=== PATIENT | female | born 1940 | race Caucasian/White ===

== ENCOUNTER → 2020-08-14 | Outpatient (CLI) | payer MEDICARE ==
[2020-08-14 13:00] LABS: African American GFR (CKD) >90 (>60 ml/min/1.73 sqM); Blood Urea Nitrogen 14 mg/dL (7-17); Non-African American GFR(CKD) 81 (>60 ml/min/1.73 sqM)
--- NOTE | 2020-08-14 14:50 | CT ---
EXAMINATION TYPE: CT abdomen pelvis w con DATE OF EXAM: 08/14/2020 HISTORY: midline abdominal pain CT DLP: 597.7mGycm Automated Exposure Control for Dose Reduction was Utilized. CONTRAST: CT scan of the abdomen and pelvis is performed with IV Contrast, patient injected with 100 mL of Isov ue 300. COMPARISON: None. FINDINGS: LUNG BASES: No significant abnormality is appreciated. LIVER/GB: Cholecystectomy clips. PANCREAS: No significant abnormality is seen. SPLEEN: No significant abnormality is seen. ADRENALS: No significant abnormality is seen. KIDNEYS: Partially exophytic 4.8 cm thin-walled cyst medially upper pole level right kidney. Symmetri c cortical medullary uptake and excretion without concerning renal mass or hydronephrosis seen bilate rally. BOWEL: Oral contrast reaches level of the right colon. No suspicious small or large bowel dilatation. Mild to moderate colonic fecal prominence in the transverse and left colon extends into proximal sig moid colon. UTERUS/ADNEXA: Uterus is surgically absent. Scattered bilateral pelvic phleboliths. In the right adne xa there is well-defined 5.2 x 5.1 x 5.2 cm lesion of predominantly fat density that has posterior sm aller 2.2 cm slightly more hyperdense soft tissue nodule. 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 LYMPH NODES: No greater than 1cm abdominal or pelvic lymph nodes are appreciated. OSSEOUS STRUCTURES: Ylpk-wk-smnlbkfy disc space narrowing with vacuum disc phenomenon L4-L5 level. Mu ltilevel facet arthropathy in the mid to lower lumbar spine. OTHER: Moderate mixed plaque in the abdominal aorta. More mild plaque in the iliac branch vessels. IMPRESSION: 1. Mild to moderate colonic fecal stasis. No bowel obstruction. 2. There is 5.2 cm right adnexal or ovarian teratoma.
== END | disposition home or self-care (01) ==
LOC: RADCTMAIN 11:58
PROVIDERS: ATTEND Family Medicine
DX: D39.11 Neoplasm of uncertain behavior of right ovary (principal); K59.89 Other specified functional intestinal disorders
CPT/HCPCS: 82565; 84520; 74177; 36415; Q9967

== ENCOUNTER → 2021-11-26 | Outpatient (CLI) | payer MEDICARE, OTHER ==
--- NOTE | 2021-11-26 10:32 | CT ---
EXAMINATION TYPE: CT abdomen pelvis w con DATE OF EXAM: 11/26/2021 COMPARISON: 08/14/2020 INDICATION: low pelvic pain DLP: 905.9 mGycm, Automated exposure control for dose reduction was used. CONTRAST: 70 mL of Isovue 300. Study performed with Oral Contrast TECHNIQUE: Axial images were obtained from above the diaphragm to the pubic rami in the axial plane a t 5 mm thick sections. Reconstructed images are reviewed on the computer in the coronal plane. FINDINGS: Limited CT sections are obtained the lung bases. The lung bases are clear. CT ABDOMEN: Liver: Normal Spleen: Normal Pancreas: Normal Adrenal glands: The adrenal glands are normal. Gallbladder: Surgically absent Kidneys: No masses are evident. No hydronephrosis is present. There is a 4.4 cm cyst superior media l right kidney measuring 10 Hounsfield units. A 1.6 cm cyst on the medial mid left kidney. Tiny génesis ical renal cyst is on the left. Delayed images are unremarkable Aorta: Vascular calcification is within the aorta. Inferior vena cava: Normal. CT PELVIS: Loops of bowel within the abdomen and pelvis are normal. There are loops of bowel which are incom pletely distended or lack oral contrast limiting their evaluation. There is a rounded density within a dilated loop of colon is likely some fecal debris. Underlying polyp is not excluded. Series 3 image 65. Appendix: Not identified. No dilated tubular structure or inflammatory changes evident. Urinary bladder: Normal. Genitourinary structures: Uterus and ovaries are not identified. Osseous structures: No suspicious lytic or sclerotic lesions. IMPRESSIONS: 1. 1. Renal cysts. 2. Fecal debris versus polyp within the both distal colon discussed above
== END | disposition home or self-care (01) ==
LOC: RADCTMAIN 06:29
PROVIDERS: ATTEND Internal Medicine Geriatric Medicine
DX: C56.9 Malignant neoplasm of unspecified ovary (principal); N28.1 Cyst of kidney, acquired
CPT/HCPCS: 74177; Q9967

== ENCOUNTER → 2023-03-16 | Outpatient (CLI) | payer MEDICARE, OTHER ==
[2023-03-16 16:27] LABS: ALT 47 U/L (8-44); AST 45 U/L (13-35); Albumin 3.9 g/dL (3.8-4.9); Albumin/Globulin Ratio 2.05 Ratio (1.60-3.17); Alkaline Phosphatase 69 U/L (41-126); BUN/Creat Ratio 16.62 Ratio (12.00-20.00); Blood Urea Nitrogen 13.3 mg/dL (9.0-27.0); Calcium 9.6 mg/dL (8.7-10.3); Carbon Dioxide 23.7 mmol/L (21.6-31.8); Chloride 102 mmol/L (96-109); Chol/HDL Ratio 1.69 Ratio; Globulin 1.9 g/dL (1.6-3.3); Glucose 154 mg/dL (70-110); LDL Cholesterol,Calculated 18.5 mg/dL (0.0-131.0); Sodium 137 mmol/L (135-145); Total Bilirubin 0.6 mg/dL (0.3-1.2); Total Protein 5.8 g/dL (6.2-8.2); VLDL Calculation 12.56 mg/dL (5.00-40.00)
[2023-03-16 18:00] LABS: Urine Creatinine 84.3 mg/dL (28.0-217.0)
== END | disposition home or self-care (01) ==
LOC: LABWHC1 08:28
PROVIDERS: ATTEND Internal Medicine Endocrinology, Diabetes & Metabolism
DX: E11.65 Type 2 diabetes mellitus with hyperglycemia (principal)
CPT/HCPCS: 36415; 80053; 80061; 82043; 82570; 83036; 84443

== ENCOUNTER 2024-03-25 12:01 | Observation (INO) | payer MEDICARE, OTHER ==
[2024-03-25] MEDS: SODIUM CHLORIDE 0.9% 500 ML 500 ML IV STA (12:28)
[2024-03-25] MEDS: NITROGLYCERIN OINT 1 INCH/GM PACKET TOPICAL STA (12:28)
[2024-03-25 12:41] LABS: Anisocytosis Slight; Basophils % (A) 0 %; Eosinophils % (A) 1 %; HCT 30.6 % (34.0-46.0); HGB 9.4 gm/dL (11.4-16.0); Hypochromasia Moderate; Lymphocytes % (A) 15 %; MCH 24.9 pg (25.0-35.0); MCHC 30.5 g/dL (31.0-37.0); MCV 81.6 fL (80.0-100.0); Mean Platelet Volume 6.9; Monocytes # (A) 0.2 k/uL (0-1.0); Monocytes % (A) 4 %; Neutrophils % (A) 79 %; Platelet Count 245 k/uL (150-450); RBC 3.75 m/uL (3.80-5.40); RDW 16.2 % (11.5-15.5); WBC 6.4 k/uL (3.8-10.6)
--- NOTE | 2024-03-25 12:46 | XR ---
EXAMINATION TYPE: XR chest 2V DATE OF EXAM: 03/25/2024 CLINICAL HISTORY: Chest pain TECHNIQUE: Frontal and lateral views of the chest are obtained. COMPARISON: Chest x-ray January 26, 2023 FINDINGS: There is [id number]-bt-[id number] size right greater than left pleural effusions. There are biba silar opacities. There is new central vascular congestion. Mild cardiomegaly seen on current study. D egenerative changes bilateral glenohumeral joints is redemonstrated. IMPRESSION: Correlate for CHF exacerbation/fluid overload state as there is cardiomegaly with small t o moderate-sized right greater than left pleural effusions and mild/moderate central vascular congest ion on current study. There is associated right greater than left bibasilar opacities could reflect a cute infiltrate and/or atelectasis. [facility], , 03/25/2024 12:43 PM
[2024-03-25 12:50] LABS: ALT 22 U/L (4-34); AST 31 U/L (14-36); African American GFR (CKD) >90 (>60 ml/min/1.73 sqM); Albumin 3.7 g/dL (3.5-5.0); Alkaline Phosphatase 99 U/L (38-126); Anion Gap 9 mmol/L; Blood Urea Nitrogen 16 mg/dL (7-17); Calcium 9.2 mg/dL (8.4-10.2); Carbon Dioxide 21 mmol/L (22-30); Chloride 101 mmol/L (98-107); Glucose 232 mg/dL (74-99); Non-African American GFR(CKD) 82 (>60 ml/min/1.73 sqM); Sodium 131 mmol/L (137-145); Total Bilirubin 0.8 mg/dL (0.2-1.3); Total Protein 6.4 g/dL (6.3-8.2)
[2024-03-25 12:57] LABS: INR 1.1 (<1.2); Partial Thromboplastin Time 22.8 sec (22.0-30.0); Prothrombin Time 11.6 sec (10.0-12.5)
[2024-03-25 13:02] LABS: NT-Pro-B-Type Natriuretic Pept 8800 pg/mL
--- NOTE | 2024-03-25 13:12 | ED ---
Chest Pain HPI - General Chief Complaint: Chest Pain Stated Complaint: Chest Pain Time Seen by Provider: 03/25/24 12:04 Source: patient, EMS, RN notes reviewed Mode of arrival: EMS Limitations: no limitations - History of Present Illness Initial Comments: 83-year-old female presents emerged part via EMS with chief complaint of chest pain. Patient states that she had centralized chest pain and palpitations. She was given aspirin nitro by EMS which improved her symptoms. She states her pain is nearly resolved. Patient states that she had a recent [place] in January in which she states she believes she had cardiac stents placed she was also told that she more likely needs pacemaker but declined at that time. Patient denies any shortness of breath currently she denies any headache or dizziness no syncopal episodes. - Related Data Home Medications Medication Instructions Recorded Confirmed metFORMIN HCL [Glucophage] 1,000 mg PO BID 01/25/23 03/25/24 Ascorbic Acid [Vitamin C] 1,000 mg PO DAILY 03/25/24 03/25/24 Cholecalciferol [Vitamin D3 (25 25 mcg PO DAILY 03/25/24 03/25/24 Mcg = 1000 Iu)] Furosemide [Lasix] 20 mg PO DAILY 03/25/24 03/25/24 Metoprolol Succinate (ER) [Toprol 100 mg PO DAILY 03/25/24 03/25/24 Xl] Rosuvastatin Calcium [Crestor] 40 mg PO DAILY 03/25/24 03/25/24 Previous Rx's Medication Instructions Recorded Apixaban [Eliquis] 2.5 mg PO BID 30 Days #60 tab 01/31/23 Clopidogrel [Plavix] 75 mg PO DAILY 30 Days #30 tab 01/31/23 Allergies Allergy/AdvReac Type Severity Reaction Status Date / Time No Known Allergies Allergy Verified 01/25/23 11:09 Review of Systems ROS Statement: Those systems with pertinent positive or pertinent negative responses have been documented in the HPI. ROS Other: All systems not noted in ROS Statement are negative. EKG Findings - EKG Comments: EKG Findings:: EKG performed at 12: 10 atrial fibrillation with a rate of 94 QRS 113 QT/QTc 350/405 - EKG Results: EKG: interpreted by RAZA Past Medical History Past Medical History: Coronary Artery Disease (CAD), Diabetes Mellitus, Myocardial Infarction ([place]) Last Myocardial Infarction Date:: 01/25/2023 History of Any Multi-Drug Resistant Organisms: Unobtainable Past Surgical History: Cholecystectomy, Heart Catheterization With Stent Past Anesthesia/Blood Transfusion Reactions: Unable to Obtain Date of Last Stent Placement:: 01/25/2023 Past Psychological History: No Psychological Hx Reported, Unable to Obtain Smoking Status: Unknown if ever smoked Past Alcohol Use History: Unable to Obtain Past Drug Use History: Unable to Obtain General Exam Limitations: no limitations General appearance: alert, in no apparent distress Head exam: Present: atraumatic, normocephalic, normal inspection ENT exam: Present: normal exam, mucous membranes moist Neck exam: Present: normal inspection. Absent: tenderness, meningismus, lymphadenopathy Respiratory exam: Present: normal lung sounds bilaterally. Absent: respiratory distress, wheezes, rales, rhonchi, stridor Cardiovascular Exam: Present: irregular rhythm, normal heart sounds. Absent: regular rate, normal rhythm, systolic murmur, diastolic murmur, rubs, gallop, clicks GI/Abdominal exam: Present: soft, normal bowel sounds. Absent: distended, tenderness, guarding, rebound, rigid Course Vital Signs 03/25/24 03/25/24 12:04 14:00 Temperature 97.8 F Pulse Rate 104 H 93 Respiratory 16 16 Rate Blood Pressure 140/78 124/72 O2 Sat by Pulse 98 97 Oximetry Chest Pain MDM - MDM Was pt. sent in by a medical professional or institution (RISSA Hoffman, INTERNAL MEDICINE SPECIALIST, urgent care, hospital, or retirement...) When possible be specific @ -No Did you speak to anyone other than the patient for history (EMS, parent, family, police, friend...)? What history was obtained from this source @ -No Did you review nursing and triage notes (agree or disagree)? Why? @ -I reviewed and agree with nursing and triage notes Were old charts reviewed (outside hosp., previous admission, EMS record, old EKG, old radiological studies, urgent care reports/EKG's, retirement records)? Report findings @ -No old charts were reviewed Differential Diagnosis (chest pain, altered mental status, abdominal pain women, abdominal pain men, vaginal bleeding, weakness, fever, dyspnea, syncope, headache, dizziness, GI bleed, back pain, seizure, CVA, palpatations, mental health, musculoskeletal)? @ -Differential Chest Pain: Stable Angina, Unstable Angina, STEMI, NSTEMI Aortic Dissection, Pneumothorax, Musculoskeletal, Esophageal Spasm GERD, Cholecystitis, Pancreatitis, Zoster, this is not meant to be an all-inclusive list. EKG interpreted by me (3pts min.). @ -As above X-rays interpreted by me (1pt min.). @ -Chest x-ray shows pleural effusion right mild pulmonary edema CT interpreted by me (1pt min.). @ -None done U/S interpreted by me (1pt. min.). @ -None done What testing was considered but not performed or refused? (CT, X-rays, U/S, labs)? Why? @ -None What meds were considered but not given or refused? Why? @ -None Did you discuss the management of the patient with other professionals (professionals i.e. , PA, INTERNAL MEDICINE SPECIALIST, lab, RT, psych nurse, certified social workers in health care, commercial collections driver, teacher, armored vehicle officer, showcase trimmer)? Give summary @ -Dr. Magana for admission Was smoking cessation discussed for >3mins.? @ -No Was critical care preformed (if so, how long)? @ -No Were there social determinants of health that impacted care today? How? (Homelessness, low income, unemployed, alcoholism, drug addiction, transportation, low edu. Level, literacy, decrease access to med. care, correction, rehab)? @ -No Was there de-escalation of care discussed even if they declined (Discuss DNR or withdrawal of care, Hospice)? DNR status @ -No What co-morbidities impacted this encounter? (DM, HTN, Smoking, COPD, CAD, Cancer, CVA, ARF, Chemo, Hep., AIDS, mental health diagnosis, sleep apnea, morbid obesity)? @ -CHF, CAD Was patient admitted / discharged? Hospital course, mention meds given and route, prescriptions, significant lab abnormalities, going to OR and other pertinent info. @ -Admitted patient presenting with complaints of chest pain resolved prior after nitro given by EMS Nitropaste was applied patient was given aspirin by EMS. Patient does have pleural effusion on the right, pulm edema given IV Lasix. Patient admitted for cardiac rule cardiology evaluation. Undiagnosed new problem with uncertain prognosis? @ -No Drug Therapy requiring intensive monitoring for toxicity (Heparin, Nitro, Insulin, Cardizem)? @ -No Were any procedures done? @ -No Diagnosis/symptom? @ -Chest pain, CHF, pleural effusion Acute, or Chronic, or Acute on Chronic? @ -Acute Uncomplicated (without systemic symptoms) or Complicated (systemic symptoms)? @ -Complicated Side effects of treatment? @ -No Exacerbation, Progression, or Severe Exacerbation? @ -Exacerbation CHF Poses a threat to life or bodily function? How? (Chest pain, [place], [place], pneumonia, PE, COPD, DKA, ARF, appy, cholecystitis, CVA, Diverticulitis, Homicidal, Suicidal, threat to staff... and all critical care pts) @ -Yes, CHF, ACS causing cardiac arrest Disposition Clinical Impression: Chest pain, CHF (congestive heart failure), Pleural effusion Disposition: ADMITTED IP TO THIS HOSP Condition: Fair Time of Disposition: 14:59
[2024-03-25] MEDS ORDERED: NITROGLYCERIN SL TABS 0.4 MG TAB SUBLINGUAL PRN (14:57)
[2024-03-25] MEDS: FUROSEMIDE 10 MG/ML 4 ML VIAL IV STA (15:02)
--- NOTE | 2024-03-25 17:13 | P.HPIM ---
History of Present Illness H&P Date: 03/25/24 Chief Complaint: Chest pain 83-year-old female, history of coronary artery disease, diabetes mellitus, hyperlipidemia, hypertension, presents emerged part via EMS with chief complaint of chest pain. Patient states that she had centralized chest pain and palpitations. She was given aspirin nitro by EMS which improved her symptoms. She states her pain is nearly resolved. Patient states that she had a recent [place] in January in which she states she believes she had cardiac stents placed she was also told that she more likely needs pacemaker but declined at that time. Patient denies any shortness of breath currently she denies any headache or dizziness no syncopal episodes. Blood work reveals WBC of 6.4, hemoglobin of 9.4 and platelet count of 245, sodium 131, potassium 5.0, BUNs/creatinine of 16/0.67 and blood glucose of 232, proBNP of 8800, troponin of 0.023 -Chest x-ray shows pleural effusion right mild pulmonary edema Review of Systems REVIEW OF SYSTEMS: CONSTITUTIONAL: No fever, no malaise, no fatigue. HEENT: No recent visual problems or hearing problems. Denied any sore throat. CARDIOVASCULAR: No chest pain, orthopnea, PND, no palpitations, no syncope. PULMONARY: No shortness of breath, no cough, no hemoptysis. GASTROINTESTINAL: No diarrhea, no nausea, no vomiting, no abdominal pain. NEUROLOGICAL: No headaches, no weakness, no numbness. HEMATOLOGICAL: Denies any bleeding or petechiae. GENITOURINARY: Denies any burning micturition, frequency, or urgency. MUSCULOSKELETAL/RHEUMATOLOGICAL: Denies any joint pain, swelling, or any muscle pain. ENDOCRINE: Denies any polyuria or polydipsia. The rest of the 14-point review of systems is negative. Past Medical History Past Medical History: Coronary Artery Disease (CAD), Diabetes Mellitus, [place]ocardial Infarction ([place]) Last Myocardial Infarction Date:: 01/25/2023 History of Any Multi-Drug Resistant Organisms: Unobtainable Past Surgical History: Cholecystectomy, Heart Catheterization With Stent Past Anesthesia/Blood Transfusion Reactions: Unable to Obtain Date of Last Stent Placement:: 01/25/2023 Past Psychological History: No Psychological Hx Reported, Unable to Obtain Smoking Status: Unknown if ever smoked Past Alcohol Use History: Unable to Obtain Past Drug Use History: Unable to Obtain Medications and Allergies Home Medications Medication Instructions Recorded Confirmed Type metFORMIN HCL [Glucophage] 1,000 mg PO BID 01/25/23 03/25/24 History Apixaban [Eliquis] 2.5 mg PO BID 30 Days #60 tab 01/31/23 03/25/24 Rx Clopidogrel [Plavix] 75 mg PO DAILY 30 Days #30 tab 01/31/23 03/25/24 Rx Ascorbic Acid [Vitamin C] 1,000 mg PO DAILY 03/25/24 03/25/24 History Cholecalciferol [Vitamin D3 (25 25 mcg PO DAILY 03/25/24 03/25/24 History Mcg = 1000 Iu)] Furosemide [Lasix] 20 mg PO DAILY 03/25/24 03/25/24 History Metoprolol Succinate (ER) [Toprol 100 mg PO DAILY 03/25/24 03/25/24 History Xl] Rosuvastatin Calcium [Crestor] 40 mg PO DAILY 03/25/24 03/25/24 History Allergies Allergy/AdvReac Type Severity Reaction Status Date / Time No Known Allergies Allergy Verified 03/25/24 15:37 Physical Exam Vitals: Vital Signs Temp Pulse Resp BP Pulse Ox 03/25/24 14:00 93 16 124/72 97 03/25/24 12:04 97.8 F 104 H 16 140/78 98 Intake and Output 03/25/24 03/25/24 03/25/24 06:59 14:59 22:59 Other: Weight 53.07 kg General appearance: alert, in no apparent distress Head exam: Present: atraumatic, normocephalic, normal inspection ENT exam: Present: normal exam, mucous membranes moist Neck exam: Present: normal inspection. Absent: tenderness, meningismus, lymphadenopathy Respiratory exam: Present: normal lung sounds bilaterally. Absent: respiratory distress, wheezes, rales, rhonchi, stridor Cardiovascular Exam: Present: irregular rhythm, normal heart sounds. Absent: regular rate, normal rhythm, systolic murmur, diastolic murmur, rubs, gallop, clicks GI/Abdominal exam: Present: soft, normal bowel sounds. Absent: distended, tenderness, guarding, rebound, rigid Results CBC & Chem 7: 03/25/24 12:24 03/25/24 12:24 Labs: Abnormal Lab Results - Last 24 Hours (Table) 11/24/24 11/24/24 Range/Units 12:24 12:24 RBC 3.75 L (3.80-5.40) m/uL Hgb 9.4 L (11.4-16.0) gm/dL Hct 30.6 L (34.0-46.0) % MCH 24.9 L (25.0-35.0) pg MCHC 30.5 L (31.0-37.0) g/dL RDW 16.2 H (11.5-15.5) % Sodium 131 L (137-145) mmol/L Carbon Dioxide 21 L (22-30) mmol/L Glucose 232 H (74-99) mg/dL Assessment and Plan Assessment: 1. Chest pain rule out acute coronary syndrome -Will be admitted to telemetry; will monitor EKG and trend troponin -Remains on aspirin, Eliquis 2.5 mg twice daily, Plavix 75 mg daily and metoprolol 100 mg daily -Consult cardiology for further evaluation 2. Hyperlipidemia; Crestor 40 mg daily 3. Diabetes mellitus type 2; continue with home dose of metformin 1000 mg twice daily; monitor Accu-Cheks before every meal and at bedtime with insulin sliding scale 4. Acute exacerbation CHF; patient will be placed on Lasix 40 mg IV every 12 hours; monitor strict NINA's, daily weights, renal function electrolytes; low- salt and fluid restricted diet -Recommend 2D echo Consult cardiology 5. Bilateral pleural effusion; likely related to acute CHF exacerbation -Will plan to diurese and repeat chest x-ray -Will consult pulmonary if no change in pleural effusion 6. Vitamin D deficiency; vitamin D 3000 units daily 7. Atrial fibrillation; remains rate controlled on metoprolol 100 mg daily; Eliquis 2.5 mg twice daily for anticoagulation VT prophylaxis; SCDs/Eliquis CODE STATUS; full code
[2024-03-25 17:59] LABS: Glucose,Whole Blood 263 mg/dL (70-110)
[2024-03-25] MEDS: INSULIN ASPART (NovoLOG) 100 UNIT/ML VIAL SQ SCH (18:03)
[2024-03-25 19:52] LABS: Glucose,Whole Blood 192 mg/dL (70-110)
[2024-03-25] MEDS: APIXABAN 2.5 MG TABLET PO SCH (20:01)
[2024-03-25] MEDS: metFORMIN 500 MG TAB PO SCH (20:01)
[2024-03-25] MEDS: FUROSEMIDE 10 MG/ML 2 ML VIAL IV SCH (20:01)
[2024-03-26] MEDS ORDERED: CAFFEINE CITRATE 60 MG/3 ML VIAL IV PRN (07:51)
[2024-03-26] MEDS ORDERED: AMINOPHYLLINE 500 MG/20 ML VIAL IV PRN (07:51)
[2024-03-26] MEDS ORDERED: REGADENOSON 0.4 MG/5 ML SYRINGE IV PRN (07:51)
[2024-03-26] MEDS: NON FORMULARY DRUG (Ascorbic Acid [Vitamin C] 1,000 MG Tablet) PO SCH (09:00)
[2024-03-26] MEDS ORDERED: CLOPIDOGREL 75 MG TAB PO SCH (09:00)
[2024-03-26] MEDS ORDERED: FUROSEMIDE 20 MG TAB PO SCH (09:00)
[2024-03-26] MEDS ORDERED: ASPIRIN 325 MG TAB PO SCH (09:00)
[2024-03-26 09:02] LABS: Basophils # (A) 0.03 X 10*3/uL (0.00-0.10); Basophils % (A) 0.5 %; Eosinophils # (A) 0.07 X 10*3/uL (0.04-0.35); Eosinophils % (A) 1.3 %; HCT 28.5 % (37.2-46.3); HGB 8.8 g/dL (12.0-15.0); Lymphocytes # (A) 1.15 X 10*3/uL (0.90-5.00); Lymphocytes % (A) 20.7 %; MCH 25.1 pg (27.0-32.0); MCHC 30.9 g/dL (32.0-37.0); MCV 81.2 FL (80.0-97.0); Mean Platelet Volume 8.7 FL (9.5-12.2); Monocytes # (A) 0.39 X 10*3/uL (0.20-1.00); NRBC Per 100 WBC 0 X 10*3/uL (0.00-0.01); Neutrophils # (A) 3.89 X 10*3/uL (1.80-7.70); Neutrophils % (A) 70.1 %; Platelet Count 222 X 10*3/uL (140-440); RBC 3.51 X 10*6/uL (4.10-5.20); RDW 16.4 % (11.5-14.5); WBC 5.55 X 10*3/uL (4.50-10.00)
[2024-03-26 09:07] LABS: BUN/Creat Ratio 20.44 Ratio (12.00-20.00); Blood Urea Nitrogen 18.4 mg/dL (9.0-27.0); Chloride 99 mmol/L (96-109); Chol/HDL Ratio 1.95 Ratio; Glucose 155 mg/dL (70-110); LDL Cholesterol,Calculated 28.9 mg/dL (0.0-131.0); Potassium 4.4 mmol/L (3.5-5.5); Sodium 133 mmol/L (135-145)
--- NOTE | 2024-03-26 10:11 | P.CRDCN ---
History of Present Illness Consult date: 03/26/24 Consult reason: chest pain History of present illness: This is a 83-year-old female patient of Dr. Martinez with past medical history of acute anterior NV status post stenting of the proximal LAD with Impella placement in December 2022, ischemic cardiomyopathy with EF of 25 to 30%, hypertension, dyslipidemia, diabetes, paroxysmal atrial fibrillation on Eliquis. We have been asked to evaluate the patient for chest pain. Patient gives history that she was sitting in a chair waiting for breakfast and she developed pain and was not able to catch her breath. The dyspnea started suddenly. But both occurred about the same time. She states this is the first time she has had pain since her NV in 2022. She states her pain is gone now but she is still having some difficulty in breathing. She denies having any cough, fever, wheezing. No lower extremity edema, no PND. She denies dizziness or syncope, no palpitations. Blood pressure 122/75, heart rate 100, pulse ox 96% on room air. Discussed options of stress test today and patient is agreeable to move forward with this. Patient has been started on IV Lasix 20 mg every 12 hours. -EKG: Atrial fibrillation at 94 bpm -Chest x-ray: Correlate for CHF exacerbation, cardiomegaly with small to moderate size right greater than left pleural effusions and mild to moderate central vascular congestion. Basilar opacities could reflect acute infiltrate and/or atelectasis. -Laboratory studies: WBC 5.5, hemoglobin 8.8. Sodium 133, potassium 4.4, BUN 18 creatinine 0.9. Triglycerides 79, cholesterol 92, LDL 28. Troponins negative x 3. proBNP 8800. -Home cardiac medications: Eliquis 2.5 mg twice daily, Plavix 75 mg daily, Lasix 20 mg daily, Toprol XL 100 mg daily, Crestor 40 mg daily. -Echocardiogram performed in the office on 05/11/2023 revealed normal LV size with severely decreased function, EF 25 to 30%. Severe hypokinesis of the anterior, lateral, septal and apical jay. Only LV base and inferior jay tristin reasonably. Small circumferential pericardial effusion with thickened pericardium chronic. Review Of Systems: At the time of my exam: CONSTITUTIONAL: Denies fever or chills. HEENT: Denies blurred vision, vision changes, or eye pain. Denies hemoptysis CARDIOVASCULAR: Denies chest pain. Denies orthopnea. Denies PND. Denies palpitations RESPIRATORY: Denies shortness of breath. GASTROINTESTINAL: Denies abdominal pain. Denies nausea or vomiting. HEMATOLOGIC: Denies bleeding disorders. GENITOURINARY: Denies any blood in urine. SKIN: Denies puritis. Denies rash. Physical examination: Gen: This is an 83-year-old female in no acute distress VS: reviewed HEENT: Head is atraumatic, normocephalic. Pupils equal, round. Sclerae is anicteric. NECK: Supple. No JVD. LUNGS: Clear to auscultation. No wheezes or rhonchi. No intercostal retractions. HEART: Irregular rate and rhythm. No murmur. ABDOMEN: Soft No tenderness. EXTREMITIES: No pedal edema. No calf tenderness. NEUROLOGICAL: Patient is awake, alert and oriented x3. Assessment: Acute HFrEF Chest pain, Anemia Dyspnea multifactorial, heart failure, anemia, PAF History of acute anterior NV with stenting of the proximal LAD with Impella placement in December 2022 Ischemic cardiomyopathy with EF of 25 to 30% Hypertension Dyslipidemia Diabetes Paroxysmal atrial fibrillation Plan: Resume patient's home cardiac medications Start patient on Farxiga 10 mg daily Continue IV Lasix 20 mg every 12 hours Monitor NINA, daily weights, electrolytes and renal function Obtain Lexiscan Cardiolite stress test today Obtain 2-D echocardiogram and Doppler study to assess cardiac structure and function Further recommendations to follow based upon clinical course Thank you kindly for this consultation. Nurse practitioner note has been reviewed, I agree with documented findings and plan of care. Patient was seen and examined. Past Medical History Past Medical History: Coronary Artery Disease (CAD), Diabetes Mellitus, Myocardial Infarction (NV) Last Myocardial Infarction Date:: 01/25/2023 History of Any Multi-Drug Resistant Organisms: Unobtainable Past Surgical History: Cholecystectomy, Heart Catheterization With Stent Past Anesthesia/Blood Transfusion Reactions: Unable to Obtain Date of Last Stent Placement:: 01/25/2023 Past Psychological History: No Psychological Hx Reported, Unable to Obtain Smoking Status: Unknown if ever smoked Past Alcohol Use History: Unable to Obtain Past Drug Use History: Unable to Obtain Medications and Allergies Home Medications Medication Instructions Recorded Confirmed Type metFORMIN HCL [Glucophage] 1,000 mg PO BID 01/25/23 03/25/24 History Apixaban [Eliquis] 2.5 mg PO BID 30 Days #60 tab 01/31/23 03/25/24 Rx Clopidogrel [Plavix] 75 mg PO DAILY 30 Days #30 tab 01/31/23 03/25/24 Rx Ascorbic Acid [Vitamin C] 1,000 mg PO DAILY 03/25/24 03/25/24 History Cholecalciferol [Vitamin D3 (25 25 mcg PO DAILY 03/25/24 03/25/24 History Mcg = 1000 Iu)] Furosemide [Lasix] 20 mg PO DAILY 03/25/24 03/25/24 History Metoprolol Succinate (ER) [Toprol 100 mg PO DAILY 03/25/24 03/25/24 History Xl] Rosuvastatin Calcium [Crestor] 40 mg PO DAILY 03/25/24 03/25/24 History Allergies Allergy/AdvReac Type Severity Reaction Status Date / Time No Known Allergies Allergy Verified 03/25/24 15:37 Physical Exam Vitals: Vital Signs Temp Pulse Pulse Resp BP BP BP 03/26/24 07:00 97.2 F L 101 H 16 122/75 03/26/24 02:00 98.0 F 95 18 106/62 03/25/24 19:43 97.9 F 90 16 125/76 03/25/24 15:55 97.7 F 98 16 141/80 03/25/24 14:00 93 16 124/72 03/25/24 12:04 97.8 F 104 H 16 140/78 Pulse Ox 03/26/24 07:00 96 03/26/24 02:00 92 L 03/25/24 19:43 96 03/25/24 15:55 94 L 03/25/24 14:00 97 03/25/24 12:04 98 Intake and Output 03/25/24 03/26/24 03/26/24 22:59 06:59 14:59 Intake Total 200 480 Balance 200 480 Intake: Oral 200 480 Other: # Voids 2 2 Weight 53.07 kg 51.9 kg Results 03/26/24 05:12 03/26/24 05:12 Cardiac Enzymes 03/25/24 03/25/24 03/25/24 Range/Units 12:24 12:24 16:30 AST 31 (14-36) U/L Troponin I 0.023 0.027 (0.000-0.034) ng/mL 03/25/24 Range/Units 19:22 AST (14-36) U/L Troponin I 0.022 (0.000-0.034) ng/mL Coagulation 03/25/24 Range/Units 12:24 PT 11.6 (10.0-12.5) sec APTT 22.8 (22.0-30.0) sec CBC 03/25/24 Range/Units 12:24 WBC 6.4 (3.8-10.6) k/uL RBC 3.75 L (3.80-5.40) m/uL Hgb 9.4 L (11.4-16.0) gm/dL Hct 30.6 L (34.0-46.0) % Plt Count 245 (150-450) k/uL Comprehensive Metabolic Panel 03/25/24 Range/Units 12:24 Sodium 131 L (137-145) mmol/L Potassium 5.0 (3.5-5.1) mmol/L Chloride 101 (98-107) mmol/L Carbon Dioxide 21 L (22-30) mmol/L BUN 16 (7-17) mg/dL Creatinine 0.67 (0.52-1.04) mg/dL Glucose 232 H (74-99) mg/dL Calcium 9.2 (8.4-10.2) mg/dL AST 31 (14-36) U/L ALT 22 (4-34) U/L Alkaline Phosphatase 99 (38-126) U/L Total Protein 6.4 (6.3-8.2) g/dL Albumin 3.7 (3.5-5.0) g/dL Current Medications Generic Name Dose Route Start Last Admin Trade Name Freq PRN Reason Stop Dose Admin Apixaban 2.5 mg 03/25/24 21:00 03/25/24 20:01 Apixaban 2.5 Mg Tablet PO 2.5 mg BID [facility] Administration Protocol Aspirin 325 mg 03/26/24 09:00 Aspirin 325 Mg Tab PO DAILY [facility] Atorvastatin Calcium 80 mg 03/26/24 09:00 Atorvastatin 80 Mg Tab PO DAILY [facility] Cholecalciferol 25 mcg 03/26/24 09:00 Cholecalciferol 25 Mcg (1000 Iu) Tablet PO DAILY [facility] Clopidogrel Bisulfate 75 mg 03/26/24 09:00 Clopidogrel 75 Mg Tab PO DAILY [facility] Furosemide 20 mg 03/25/24 21:00 03/25/24 20:01 Furosemide 10 Mg/Ml 2 Ml Vial IV 20 mg Q12HR [facility] Administration Insulin Aspart 0 unit 03/25/24 17:30 03/25/24 20:01 Insulin Aspart (Novolog) 100 Unit/Ml Vial SQ 04/01/24 17:29 2 unit ACHS [facility] Administration Protocol Metformin HCl 1,000 mg 03/25/24 21:00 03/25/24 20:01 Metformin 500 Mg Tab PO 1,000 mg BID [facility] Administration Metoprolol Succinate 100 mg 03/26/24 09:00 Metoprolol Succinate (Er) 100 Mg Tab.Er.24h PO DAILY [facility] Nitroglycerin 0.4 mg 03/25/24 14:57 Nitroglycerin Sl Tabs 0.4 Mg Tab SUBLINGUAL Q5M PRN Chest Pain Non-Formulary Medication 1,000 mg 03/26/24 09:00 Ascorbic Acid [Vitamin C] PO DAILY [facility] Intake and Output 03/25/24 03/26/24 03/26/24 22:59 06:59 14:59 Intake Total 200 480 Balance 200 480 Intake: Oral 200 480 Other: # Voids 2 2 Weight 53.07 kg 51.9 kg 03/25/24 12:24 03/25/24 12:24
[2024-03-26] MEDS: ATORVASTATIN 80 MG TAB PO SCH (11:11)
[2024-03-26] MEDS: DAPAGLIFLOZIN PROPANEDIOL 10 MG TABLET PO SCH (11:11)
[2024-03-26] MEDS: ASPIRIN 81 MG PO SCH (11:11)
[2024-03-26] MEDS: METOPROLOL SUCCINATE (ER) 100 MG TAB.ER.24H PO SCH (11:11)
[2024-03-26] MEDS: CHOLECALCIFEROL 25 MCG (1000 IU) TABLET PO SCH (11:11)
--- NOTE | 2024-03-26 11:31 | NM ---
EXAMINATION TYPE: NM stress lexiscan cardiolite DATE OF EXAM: 03/26/2024 COMPARISON: NONE CLINICAL INDICATION: Female, 83 years old with history of chest pain; TECHNIQUE: After the intravenous administration of 9.67 mCi Tc 99m Sestamibi - Cardiolite resting SP ECT images acquired 55 minutes post injection. The patient received 0.4mg Lexiscan, 24.9 mCi Tc 99m Sestamibi - Stress images obtained [address] injection FINDINGS: Review of stress and rest SPECT images demonstrates large areas of fixed defect involving the anterio r wall, apical inferior wall, and mid septal wall. No distinct perfusion abnormality. Gated analysis shows some global hypokinesis and limited augmentation of the areas of perfusion abnormality. Estima sherrill left ventricular ejection fraction of 22 %. TID is calculated at 0.9, within normal limits. IMPRESSION: Large areas of fixed perfusion defects suggesting multiple old infarcts. Clinically correlate. No dis crete reversibility is seen at this time. Estimated LVEF diminished at 22%. [facility], , 03/26/2024 11:28 AM
--- NOTE | 2024-03-26 11:36 | CA ---
Lexiscan Nuclear Stress Test Report Name: Shannan Brooks Exam Date: 03/26/2024 09:43 Exam Location: [place] Stress Ht (in): 60 Wt (lb): 114 BSA: 1.47 Ordering Phys: Kalli Multani Referring Phys: GEORGE Technologist: RUSS Age: 83 Gender: F : 1940 Procedure CPT: Indications: Reflex order-Stress test ICD-10 Codes: Patient History: Chest pain,shortness of breath and palpitations. Medications: Meds past 24 hrs: Pretest Chest Pain: STRESS TEST Lexiscan Protocol Exercise Duration (min:sec): 02:[address] Depressions (mm): Angina Score: Foote Score: Resting HR (bpm): 97 Peak HR (bpm): 124 Resting BP (mmHg): 151 / 77 Peak BP (mmHg): / 74 MPHR: 137 Target HR: 116 % MPHR: 91 METS: 1.0 Total Dose: Peak Dose: Atropine: Double Product: BP Response: Stress Termination: Infusion complete Stress Symptoms: Short of breath, nausea and some chest pain #4 Stress Summary: ECG ANALYSIS Resting ECG: Sinus rhythm. Normal conduction. Atrial premature contraction. Nonspecific ST-T abnormality. Stress ECG: No ECG changes from baseline with Lexiscan infusion. CONCLUSIONS No ECG evidence of ischemia with Lexiscan infusion. Nuclear test results to follow. Dr. Roxann Wynn MD (Electronically Signed) Final Date: 26 March 2024 11:35
[2024-03-26 11:56] LABS: Glucose,Whole Blood 250 mg/dL (70-110)
--- NOTE | 2024-03-26 13:36 | CA ---
Transthoracic Echo Report Name: Shannan Brooks Age: 83 Gender: F : 1940 Exam Date: 03/26/2024 12:11 Exam Location: [place] Echo Ht (in): 60 Wt (lb): 114 Ordering Physician: Kalli Multani Attending/Referring Phys: [id number], [employer]anner Geno Bland, RAMIRO Procedure CPT: Indications: LVF Cardiac Hx: Technical Quality: Good Contrast 1: Definity Total Dose (mL): 2 Contrast 2: Total Dose (mL): MEASUREMENTS (Male / Female) Normal Values 2D ECHO LV Diastolic Diameter PLAX 5.5 cm 4.2 - 5.9 / 3.9 - 5.3 cm LV Systolic Diameter PLAX 4.2 cm IVS Diastolic Thickness 0.8 cm 0.6 - 1.0 / 0.6 - 0.9 cm LVPW Diastolic Thickness 0.7 cm 0.6 - 1.0 / 0.6 - 0.9 cm LV Relative Wall Thickness 0.3 RV Internal Dim ED PLAX 2.0 cm LA Systolic Diameter LX 3.8 cm 3.0 - 4.0 / 2.7 - 3.8 cm LA Volume 80.9 cm??? 18 - 58 / 22 - 52 cm??? LA Volume Index 54.5 cm???/m??? 16 - 28 cm???/m??? M-MODE Aortic Root Diameter MM 3.0 cm LA Systolic Diameter MM 3.7 cm LA Ao Ratio MM 1.2 AV Cusp Separation MM 1.5 cm DOPPLER AV Peak Velocity 128.1 cm/s AV Peak Gradient 6.6 mmHg AV Mean Velocity 91.8 cm/s AV Mean Gradient 3.8 mmHg AV Velocity Time Integral 25.5 cm AI Peak Velocity 243.7 cm/s AI Peak Gradient 23.8 mmHg AI Pressure Half Time 1106.8 ms MV Area PHT 2.6 cm??? Mitral E Point Velocity 108.2 cm/s Mitral A Point Velocity 66.1 cm/s Mitral E to A Ratio 1.6 MV Deceleration Time 291.4 ms TR Peak Velocity 426.9 cm/s TR Peak Gradient 72.9 mmHg FINDINGS Left Ventricle Left ventricular ejection fraction is estimated at 20-25 %. Mildly increased left ventricular diastolic diameter. Left ventricular wall thickness normal. Severe impairment of the left ventricular systolic function with akinesis of the apex, mid and distal anterior wall, and distal septal wall. Right Ventricle Mild right ventricular dilatation. Severe pulmonary hypertension. Right Atrium Severe right atrial dilatation. Left Atrium Severely increased left atrial volume. Mildly increased left atrial area. Mitral Valve Mitral valve thickened. Severe mitral regurgitation. No mitral stenosis. Aortic Valve Trileaflet aortic valve. No aortic stenosis. Mild aortic regurgitation.aortic valve sclerosis. Tricuspid Valve Structurally normal tricuspid valve. Severe tricuspid regurgitation. No tricuspid stenosis. Pulmonic Valve Structurally normal pulmonic valve. No pulmonic stenosis. Trace pulmonic regurgitation. Pericardium Small pericardial effusion. Pericardial effusion filled with fibrous strands. Left pleural effusion. Aorta Normal size aortic root and proximal ascending aorta. CONCLUSIONS 1. Severely impaired left ventricular systolic function with segmental wall motion abnormality 2. Severe mitral and tricuspid regurgitation with severe pulmonary hypertension 3. Mild aortic regurgitation 4. Small pericardial effusion Previewed by: Dr. Roxann Wynn MD (Electronically Signed) Final Date: 26 March 2024 13:36
--- NOTE | 2024-03-26 15:39 | P.PN ---
Subjective Progress Note Date: 03/26/24 83-year-old female, history of coronary artery disease, diabetes mellitus, hyperlipidemia, hypertension, presents emerged part via EMS with chief complaint of chest pain. Patient states that she had centralized chest pain and palpitations. She was given aspirin nitro by EMS which improved her symptoms. She states her pain is nearly resolved. Patient states that she had a recent [facility] in January in which she states she believes she had cardiac stents placed she was also told that she more likely needs pacemaker but declined at that time. Patient denies any shortness of breath currently she denies any headache or dizziness no syncopal episodes. Blood work reveals WBC of 6.4, hemoglobin of 9.4 and platelet count of 245, sodium 131, potassium 5.0, BUNs/creatinine of 16/0.67 and blood glucose of 232, proBNP of 8800, troponin of 0.023 -Chest x-ray shows pleural effusion right mild pulmonary edema 03/26/2024 Patient is seen and evaluated in follow-up today with cardiology following recommending stress testing. Patient is currently n.p.o. and awaiting to complete the stress test. Patient continues on IV Lasix 20 mg twice daily for acute CHF exacerbation as well. Medications being adjusted per cardiology and will monitor on telemetry monitoring. Awaiting stress test and further recomm endations from cardiology. Hemoglobin is stable at 8.8, sodium 133, potassium 4.4, creatinine 0.9, blood sugars mildly elevated and fasting cholesterol panel was done. Will continue current insulin regimen with Accu-Cheks before meals and at bedtime and adjust accordingly. Patient denies any chest pain at this time. Review of systems: Constitutional: No reports of fatigue, fever, or chills Cardiovascular: No reports of chest pain or palpitations Respiratory: No reports of shortness of breath or cough GI: No reports of nausea, vomiting, or diarrhea : No reports of dysuria or retention Neurovascular: No reports of weakness or numbness All medications have been reviewed Physical exam: Gen: This is a 83-year-old female who is awake, alert and oriented x 3, thin built, elderly appearing HEENT: Head is atraumatic, normocephalic. Pupils equal, round. Sclerae is anicteric. NECK: Supple. No JVD. No lymphadenopathy. No thyromegaly. LUNGS: Diminished breath sounds bilaterally otherwise clear to auscultation. No wheezes or rhonchi. No intercostal retractions. HEART: S1, S2 are muffled ABDOMEN: Soft. Bowel sounds are present. No masses. No tenderness. EXTREMITIES: No pedal edema. No calf tenderness. NEUROLOGICAL: Patient is awake, alert and oriented x3. Cranial nerves 2 through 12 are grossly intact. Assessment: 1. Chest pain ruled out acute coronary syndrome, scheduled to undergo stress testing today, cardiology following making adjustments and has resumed appropriate home medications 2. Hyperlipidemia; continue Crestor 40 mg daily 3. Diabetes mellitus type 2; uncontrolled with hyperglycemia, will adjust insulins and monitor with sliding scale and monitor Accu-Cheks before every meal and at bedtime 4. Acute exacerbation CHF; patient is continued on Lasix 20 mg IV every 12 hours; monitor strict NINA's, daily weights, renal function electrolytes; low- salt and fluid restricted diet 5. Bilateral pleural effusion; likely related to acute CHF exacerbation 6. Vitamin D deficiency; continue vitamin D 3000 units daily 7. Atrial fibrillation; remains rate controlled on metoprolol 100 mg daily; Eliquis 2.5 mg twice daily for anticoagulation GI prophylaxis DVT prophylaxis; SCDs/Eliquis CODE STATUS; full code Plan: Patient scheduled to undergo stress testing today which showed large areas of fixed perfusion defect suggesting multiple old infarcts clinically correlate with no discrete reversibility seen at this time and estimated LVEF is diminished at 22%. Cardiology following recommending monitoring overnight and continue on IV Lasix for diuresis Follow-up labs ordered for a.m. Replace electrolytes per protocol and monitor kidney functions closely Encouraged increase activity as tolerated with possible discharge planning in the next 24 hours The impression and plan of care has been dictated by Danisha Sullivan, Nurse Practitioner as directed. Dr. Rosalie MD I have performed a history and examination and MDM of this patient, discussed the same with the dictator, and agree with the dictator's assessment and plan as written ,documented as a scribe. Based on total visit time, I have performed more than 50% of the visit. Objective - Vital Signs Vital signs: Vital Signs Temp 97.2 F L 03/26/24 07:00 Pulse 101 H 03/26/24 07:00 Resp 16 03/26/24 07:00 BP 122/75 03/26/24 07:00 Pulse Ox 96 03/26/24 07:00 FiO2 Intake & Output 03/25/24 03/26/24 03/26/24 18:59 06:59 18:59 Intake Total 200 480 Balance 200 480 Weight 53.07 kg 51.9 kg Intake: Oral 200 480 Other: # Voids 2 - Labs CBC & Chem 7: 03/26/24 05:12 03/26/24 05:12 Labs: Abnormal Lab Results - Last 24 Hours (Table) 03/25/24 03/25/24 03/25/24 Range/Units 12:24 12:24 17:58 RBC 3.75 L (3.80-5.40) m/uL Hgb 9.4 L (11.4-16.0) gm/dL Hct 30.6 L (34.0-46.0) % MCH 24.9 L (25.0-35.0) pg MCHC 30.5 L (31.0-37.0) g/dL RDW 16.2 H (11.5-15.5) % MPV (9.5-12.2) FL Sodium 131 L (137-145) mmol/L Carbon Dioxide 21 L (22-30) mmol/L BUN/Creatinine Ratio (12.00-20.00) Ratio Glucose 232 H (74-99) mg/dL POC Glucose (mg/dL) 263 H (70-110) mg/dL 03/25/24 03/26/24 03/26/24 Range/Units 19:50 05:12 05:12 RBC 3.51 L (3.80-5.40) m/uL Hgb 8.8 L (11.4-16.0) gm/dL Hct 28.5 L (34.0-46.0) % MCH 25.1 L (25.0-35.0) pg MCHC 30.9 L (31.0-37.0) g/dL RDW 16.4 H (11.5-15.5) % MPV 8.7 L (9.5-12.2) FL Sodium 133 L (137-145) mmol/L Carbon Dioxide (22-30) mmol/L BUN/Creatinine Ratio 20.44 H (12.00-20.00) Ratio Glucose 155 H (74-99) mg/dL POC Glucose (mg/dL) 192 H (70-110) mg/dL
[2024-03-26 17:17] LABS: Glucose,Whole Blood 148 mg/dL (70-110)
[2024-03-26 19:52] LABS: Glucose,Whole Blood 191 mg/dL (70-110)
[2024-03-27 05:21] LABS: Glucose,Whole Blood 151 mg/dL (70-110)
[2024-03-27 07:24] VITALS: BP 128/70; PULSE 84; RESP 18; TEMP 97.4
[2024-03-27] MEDS: FUROSEMIDE 20 MG TAB PO SCH (08:44)
[2024-03-27] MEDS: SPIRONOLACTONE 25 MG TAB PO SCH (08:46)
[2024-03-27 08:57] LABS: Blood Urea Nitrogen 18.9 mg/dL (9.0-27.0); Calcium 9.4 mg/dL (8.7-10.3); Chloride 95 mmol/L (96-109); Glucose 149 mg/dL (70-110); Magnesium 2.4 mg/dL (1.5-2.4); Potassium 4.1 mmol/L (3.5-5.5); Sodium 132 mmol/L (135-145)
--- NOTE | 2024-03-27 09:33 | P.PN ---
Subjective Progress Note Date: 03/27/24 Consult reason: chest pain History of present illness: This is a 83-year-old female patient of Dr. Martinez with past medical history of acute anterior DC status post stenting of the proximal LAD with Impella placement in December 2022, ischemic cardiomyopathy with EF of 25 to 30%, hypertension, dyslipidemia, diabetes, paroxysmal atrial fibrillation on Eliquis. We have been asked to evaluate the patient for chest pain. Patient gives history that she was sitting in a chair waiting for breakfast and she developed pain and was not able to catch her breath. The dyspnea started suddenly. But both occurred about the same time. She states this is the first time she has had pain since her DC in 2022. She states her pain is gone now but she is still having some difficulty in breathing. She denies having any cough, fever, wheezing. No lower extremity edema, no PND. She denies dizziness or syncope, no palpitations. Blood pressure 122/75, heart rate 100, pulse ox 96% on room air. Discussed options of stress test today and patient is agreeable to move forward with this. Patient has been started on IV Lasix 20 mg every 12 hours. -EKG: Atrial fibrillation at 94 bpm -Chest x-ray: Correlate for CHF exacerbation, cardiomegaly with small to moderate size right greater than left pleural effusions and mild to moderate central vascular congestion. Basilar opacities could reflect acute infiltrate and/or atelectasis. -Laboratory studies: WBC 5.5, hemoglobin 8.8. Sodium 133, potassium 4.4, BUN 18 creatinine 0.9. Triglycerides 79, cholesterol 92, LDL 28. Troponins negative x 3. proBNP 8800. -Home cardiac medications: Eliquis 2.5 mg twice daily, Plavix 75 mg daily, Lasix 20 mg daily, Toprol XL 100 mg daily, Crestor 40 mg daily. -Echocardiogram performed in the office on 05/11/2023 revealed normal LV size with severely decreased function, EF 25 to 30%. Severe hypokinesis of the anterior, lateral, septal and apical jay. Only LV base and inferior jay tristin reasonably. Small circumferential pericardial effusion with thi ckened pericardium chronic. 03/27/2024 Patient seen and examined. Yesterday she underwent Lexiscan stress test which revealed large areas of fixed perfusion defects. No discrete reversibility, EF 22%. Echocardiogram revealed EF of 20 to 25%, severe mitral and tricuspid regurgitation with severe pulmonary hypertension. Patient states that her breathing is better today. She denies having any chest pain. She has been maintained on IV Lasix 20 mg every 12 hours which we will transition to oral Physical examination: Gen: This is an 83-year-old female in no acute distress VS: reviewed HEENT: Head is atraumatic, normocephalic. Pupils equal, round. Sclerae is anicteric. NECK: Supple. No JVD. LUNGS: Clear to auscultation. No wheezes or rhonchi. No intercostal retractions. HEART: Irregular rate and rhythm. No murmur. ABDOMEN: Soft No tenderness. EXTREMITIES: No pedal edema. No calf tenderness. NEUROLOGICAL: Patient is awake, alert and oriented x3. Assessment: Acute HFrEF Chest pain, Anemia Dyspnea multifactorial, heart failure, anemia, PAF History of acute anterior DC with stenting of the proximal LAD with Impella placement in December 2022 Ischemic cardiomyopathy with EF of 25 to 30% Hypertension Dyslipidemia Diabetes Paroxysmal atrial fibrillation Valvular heart disease with severe mitral and tricuspid regurgitation Severe pulmonary hypertension Plan: Continue patient's home cardiac medications: Eliquis, Plavix, Toprol XL, Crestor Transition IV Lasix to oral 20 mg twice daily BMP in 1 week Follow-up with Dr. Martinez in 12 weeks Start patient on Farxiga 10 mg daily Patient is cleared for discharge from cardiology. Nurse practitioner note has been reviewed, I agree with documented findings and plan of care. Patient was seen and examined. Objective - Vital Signs Vital signs: Vital Signs Temp 97.4 F L 03/27/24 07:00 Pulse 84 03/27/24 07:00 Resp 18 03/27/24 07:00 BP 128/70 03/27/24 07:00 Pulse Ox 99 03/27/24 07:00 FiO2 Intake & Output 03/26/24 03/27/24 03/27/24 18:59 06:59 18:59 Weight 50.7 kg Other: Voiding Method Toilet Toilet # Voids 3 2 - Labs CBC & Chem 7: 03/26/24 05:12 03/27/24 05:00 Labs: Abnormal Lab Results - Last 24 Hours (Table) 03/26/24 03/26/24 03/26/24 Range/Units 05:12 05:12 11:55 RBC 3.51 L (4.10-5.20) X 10*6/uL Hgb 8.8 L (12.0-15.0) g/dL Hct 28.5 L (37.2-46.3) % MCH 25.1 L (27.0-32.0) pg MCHC 30.9 L (32.0-37.0) g/dL RDW 16.4 H (11.5-14.5) % MPV 8.7 L (9.5-12.2) FL Sodium 133 L (135-145) mmol/L BUN/Creatinine Ratio 20.44 H (12.00-20.00) Ratio Glucose 155 H (70-110) mg/dL POC Glucose (mg/dL) 250 H (70-110) mg/dL 03/26/24 03/26/24 03/27/24 Range/Units 17:15 19:49 05:17 RBC (4.10-5.20) X 10*6/uL Hgb (12.0-15.0) g/dL Hct (37.2-46.3) % MCH (27.0-32.0) pg MCHC (32.0-37.0) g/dL RDW (11.5-14.5) % MPV (9.5-12.2) FL Sodium (135-145) mmol/L BUN/Creatinine Ratio (12.00-20.00) Ratio Glucose (70-110) mg/dL POC Glucose (mg/dL) 148 H 191 H 151 H (70-110) mg/dL
[2024-03-27] MEDS ORDERED: FUROSEMIDE 20 MG TAB PO SCH (16:00)
--- NOTE | 2024-04-01 13:38 | P.DS ---
Providers Date of admission: 03/25/24 14:49 Expected date of discharge: 03/27/24 Attending physician: Guanakito Longoria MD Consults: 03/25/24 14:57 Consult Physician Urgent Consulting Provider: Gus Merida Consult Reason/Comments: chest pain, CHF Do you want consulting provider notified?: Yes Primary care physician: Linden Foster Hospital Course: Final diagnosis 1. Chest pain ruled out acute coronary syndrome, status post stress testing, no reversible ischemia noted, chest pain resolved 2. Hyperlipidemia 3. Diabetes mellitus type 2; uncontrolled with hyperglycemia 4. Acute exacerbation CHF 5. Bilateral pleural effusion; likely related to acute CHF exacerbation 6. Vitamin D deficiency 7. Atrial fibrillation; remains rate controlled GI prophylaxis DVT prophylaxis; SCDs/Eliquis CODE STATUS; full code Discharge disposition Patient is being discharged in a stable condition with guarded prognosis to home. Patient will follow-up with Dr. Foster in the outpatient setting upon discharge. Patient is to continue with current medications and outpatient follow-up with cardiology as scheduled. Total time taken is greater than 35 minutes. Hospital course This is a 83-year-old female who was recently admitted with chest pain, ruled out ACS. Patient did undergo stress testing which was slightly abnormal although showing no areas of reducible ischemia recommending to continuing with medical management and medication adjustments made. Cardiology recommending monitoring overnight with no significant events noted and has cleared the patient for discharge today. Patient to follow-up with cardiology outpatient on discharge. Patient will transition to oral Lasix 20 mg twice daily and outpatient labs recommended. Patient reports to feeling improved and would like to go home. Please refer to cardiology notes for further HPI. Currently no reports of chest pain, shortness of breath, or palpitations. Patient is afebrile. No reports of nausea or vomiting and patient is tolerating diet. Patient will be discharged home today. Guarded prognosis. Physical exam: Gen: This is a 83-year-old female who is awake, alert and oriented x 3, well- developed, elderly appearing, thin built HEENT: Head is atraumatic, normocephalic. Pupils equal, round. Sclerae is anicteric. NECK: Supple. No JVD. No lymphadenopathy. No thyromegaly. LUNGS: Clear to auscultation. No wheezes or rhonchi. No intercostal retractions. HEART: Regular rate and rhythm. No murmur. ABDOMEN: Soft. Bowel sounds are present. No masses. No tenderness. EXTREMITIES: No pedal edema. No calf tenderness. NEUROLOGICAL: Patient is awake, alert and oriented x3. Cranial nerves 2 through 12 are grossly intact. Please refer to medication reconciliation sheet for a list of medications. The impression and plan of care has been dictated by Danisha Sullivan, Nurse Practitioner as directed. Dr. Rosalie MD I have performed a history and examination and MDM of this patient, discussed the same with the dictator, and agree with the dictator's assessment and plan as written ,documented as a scribe. Based on total visit time, I have performed more than 50% of the visit. Patient Condition at Discharge: Fair Plan - Discharge Summary Discharge Rx Participant: Yes New Discharge Prescriptions: New Spironolactone [Aldactone] 25 mg PO DAILY #30 tab Aspirin 81 mg PO DAILY #30 tab Dapagliflozin Propanediol [Farxiga] 10 mg PO DAILY #30 tab Furosemide [Lasix] 20 mg PO BID@0900,1600 #60 tab Nitroglycerin Sl Tabs [Nitrostat] 0.4 mg SUBLINGUAL Q5M PRN #10 tab PRN Reason: Chest Pain Continue Metoprolol Succinate (ER) [Toprol XL] 100 mg PO DAILY Ascorbic Acid [Vitamin C] 1,000 mg PO DAILY metFORMIN HCL [Glucophage] 1,000 mg PO BID Apixaban [Eliquis] 2.5 mg PO BID 30 Days #60 tab Rosuvastatin Calcium [Crestor] 40 mg PO DAILY Cholecalciferol [Vitamin D3 (25 Mcg = 1000 Iu)] 25 mcg PO DAILY Discontinued Clopidogrel [Plavix] 75 mg PO DAILY 30 Days #30 tab Furosemide [Lasix] 20 mg PO DAILY Discharge Medication List metFORMIN HCL [Glucophage] 1,000 mg PO BID 01/25/23 [History] Apixaban [Eliquis] 2.5 mg PO BID 30 Days #60 tab 01/31/23 [Rx] Ascorbic Acid [Vitamin C] 1,000 mg PO DAILY 03/25/24 [History] Cholecalciferol [Vitamin D3 (25 Mcg = 1000 Iu)] 25 mcg PO DAILY 03/25/24 [History] Metoprolol Succinate (ER) [Toprol XL] 100 mg PO DAILY 03/25/24 [History] Rosuvastatin Calcium [Crestor] 40 mg PO DAILY 03/25/24 [History] Aspirin 81 mg PO DAILY #30 tab 03/27/24 [Rx] Dapagliflozin Propanediol [Farxiga] 10 mg PO DAILY #30 tab 03/27/24 [Rx] Furosemide [Lasix] 20 mg PO BID@0900,1600 #60 tab 03/27/24 [Rx] Nitroglycerin Sl Tabs [Nitrostat] 0.4 mg SUBLINGUAL Q5M PRN #10 tab 03/27/24 [Rx] Spironolactone [Aldactone] 25 mg PO DAILY #30 tab 03/27/24 [Rx] Follow up Appointment(s)/Referral(s): Daniel Martinez MD [STAFF PHYSICIAN] - 04/03/24 10:45 am Linden Foster DO [Primary Care Provider] - 1-2 days Ambulatory/Diagnostic Orders: Basic Metabolic Panel [LAB.AMB] Location: None Selected Patient Instructions/Handouts: Chest Pain (ED), Chest Pain (DC) Activity/Diet/Wound Care/Special Instructions: Activity limited until follow-up Follow-up with primary care provider on discharge Follow-up with cardiology in 1 to 2 weeks Continue taking medications as prescribed Continue heart healthy diabetic diet Repeat labs in 2 to 3 days to monitor kidney functions and electrolytes follow up as directed, sooner for worsening symptoms., problems, or concerns. Discharge Disposition: HOME SELF-CARE
== END 2024-03-27 12:22 | disposition home or self-care (01) ==
LOC: EC 12:01 → 6NMEDSUR 14:49
PROVIDERS: ADMIT Internal Medicine; ATTEND Internal Medicine
DX: R07.89 Other chest pain (principal); R00.2 Palpitations; E78.5 Hyperlipidemia, unspecified; E11.65 Type 2 diabetes mellitus with hyperglycemia; I11.0 Hypertensive heart disease with heart failure; I50.21 Acute systolic (congestive) heart failure; E55.9 Vitamin D deficiency, unspecified; B02.9 Zoster without complications; D64.9 Anemia, unspecified; J90 Pleural effusion, not elsewhere classified; F10.20 Alcohol dependence, uncomplicated; F17.200 Nicotine dependence, unspecified, uncomplicated; I08.1 Rheumatic disorders of both mitral and tricuspid valves; I25.10 Atherosclerotic heart disease of native coronary artery without angina pectoris; I25.2 Old myocardial infarction; I25.5 Ischemic cardiomyopathy; I27.20 Pulmonary hypertension, unspecified; I48.0 Paroxysmal atrial fibrillation; K21.9 Gastro-esophageal reflux disease without esophagitis; Z59.00 Homelessness unspecified; Z59.6 Low income; Z66 Do not resuscitate; Z79.01 Long term (current) use of anticoagulants; Z79.02 Long term (current) use of antithrombotics/antiplatelets; Z79.4 Long term (current) use of insulin; Z79.82 Long term (current) use of aspirin; Z79.84 Long term (current) use of oral hypoglycemic drugs; Z79.899 Other long term (current) drug therapy; N17.9 Acute kidney failure, unspecified; Z95.5 Presence of coronary angioplasty implant and graft
CPT/HCPCS: 96376 ×2; 96374; 99285; 36415; 93005; 93017; 83880; 80061; 80053; 80048 ×2; 83735 ×2; 84484; 85025 ×2; 85610; 85730; 71046; 78452; G0378 ×3; C8929; A9500; J1940 ×3; Q9957; J2785; 93306

== ENCOUNTER 2024-07-30 08:47 | Emergency (ER) | payer MEDICARE, OTHER ==
[2024-07-30 08:56] VITALS: TEMP 97.8
[2024-07-30] MEDS: ALPRAZolam 0.25 MG TAB PO STA (09:44)
[2024-07-30] MEDS: SODIUM CHLORIDE 0.9% 500 ML 500 ML IV STA (09:45)
[2024-07-30 09:51] LABS: INR 1.1 (<1.2); Partial Thromboplastin Time 26.4 sec (22.0-30.0); Prothrombin Time 12.3 sec (10.0-12.5)
[2024-07-30 09:54] LABS: Anisocytosis Slight; Basophils % (A) 0 %; Eosinophils % (A) 0 %; HCT 31.8 % (34.0-46.0); HGB 9.7 gm/dL (11.4-16.0); Hypochromasia Marked; Lymphocytes # (A) 0.8 k/uL (1.0-4.8); Lymphocytes % (A) 10 %; MCH 22.9 pg (25.0-35.0); MCHC 30.6 g/dL (31.0-37.0); MCV 74.7 fL (80.0-100.0); Mean Platelet Volume 6.6; Microcytosis Slight; Monocytes # (A) 0.3 k/uL (0-1.0); Monocytes % (A) 3 %; Neutrophils % (A) 86 %; Platelet Count 249 k/uL (150-450); RBC 4.26 m/uL (3.80-5.40); RDW 16.8 % (11.5-15.5); WBC 8.2 k/uL (3.8-10.6)
[2024-07-30 10:00] LABS: Appearance,Urine Turbid (Clear); Bacteria,Urine Few /hpf; Bilirubin,Urine Negative (Negative); Blood,Urine Small (Negative); Color,Urine Light yellow; Glucose,Urine (UA) Negative (Negative); Ketones,Urine Negative (Negative); Leukocyte Esterase,Urine Large (Negative); Nitrite,Urine Positive (Negative); Protein,Urine Negative (Negative); RBC,Urine 1 /hpf (0-5); Specific Gravity,Urine 1.009 (1.001-1.035); Squamous Epithelial Cell,Urine 1 /hpf (0-4); Urobilinogen,Urine <2.0 mg/dL (<2.0); WBC,Urine >182 /hpf (0-5)
[2024-07-30 10:00] LABS: ALT 13 U/L (4-34); AST 25 U/L (14-36); African American GFR (CKD) >90 (>60 ml/min/1.73 sqM); Albumin 3.5 g/dL (3.5-5.0); Alkaline Phosphatase 69 U/L (38-126); Anion Gap 7 mmol/L; Blood Urea Nitrogen 9 mg/dL (7-17); Calcium 9.1 mg/dL (8.4-10.2); Carbon Dioxide 25 mmol/L (22-30); Chloride 96 mmol/L (98-107); Glucose 162 mg/dL (74-99); Magnesium 1.8 mg/dL (1.6-2.3); Non-African American GFR(CKD) 81 (>60 ml/min/1.73 sqM); Potassium 4.4 mmol/L (3.5-5.1); Sodium 128 mmol/L (137-145); Total Bilirubin 0.9 mg/dL (0.2-1.3); Total Protein 6.3 g/dL (6.3-8.2)
--- NOTE | 2024-07-30 10:00 | XR ---
EXAMINATION TYPE: XR chest 2V DATE OF EXAM: 07/30/2024 9:56 AM COMPARISON: Chest radiographs from bone 2424 CLINICAL INDICATION: Female, 84 years old with history of dysrhythmia; [facility] TECHNIQUE: XR chest 2V Frontal and lateral views of the chest. FINDINGS: Lungs/Pleura: Blunting of the right costophrenic angle. There is no evidence of left pleural effusio n, focal consolidation, or pneumothorax Pulmonary vascularity: Unremarkable. Heart/mediastinum: Cardiomediastinal silhouette is unremarkable. Musculoskeletal: No acute osseous pathology. IMPRESSION: 1. No acute cardiopulmonary disease/process. 2. Trace right pleural effusion. [facility], , 07/30/2024 9:57 AM
--- NOTE | 2024-07-30 10:48 | ED ---
General Adult HPI - General Chief complaint: Arrhythmia/Palpitations Stated complaint: weakness Time Seen by Provider: 07/30/24 08:54 Source: patient, EMS, RN notes reviewed Mode of arrival: EMS Limitations: no limitations - History of Present Illness Initial comments: 84-year-old female presents emergency department with chief complaint of palpitations states that she just felt off last couple days she gets very anxious and her heart races but denies any chest pain shortness of breath headache or dizziness. She does have some urinary frequency lower abdominal discomfort. No flank pain patient does have a history of A-fib states that she has had prior cardiac disease but again denies any chest pain or chest pressure. - Related Data Home Medications Medication Instructions Recorded Confirmed metFORMIN HCL [Glucophage] 1,000 mg PO BID 01/25/23 03/25/24 Ascorbic Acid [Vitamin C] 1,000 mg PO DAILY 03/25/24 03/25/24 Cholecalciferol [Vitamin D3 (25 25 mcg PO DAILY 03/25/24 03/25/24 Mcg = 1000 Iu)] Metoprolol Succinate (ER) [Toprol 100 mg PO DAILY 03/25/24 03/25/24 XL] Rosuvastatin Calcium [Crestor] 40 mg PO DAILY 03/25/24 03/25/24 Previous Rx's Medication Instructions Recorded Apixaban [Eliquis] 2.5 mg PO BID 30 Days #60 tab 01/31/23 Aspirin 81 mg PO DAILY #30 tab 03/27/24 Dapagliflozin Propanediol [Farxiga] 10 mg PO DAILY #30 tab 03/27/24 Furosemide [Lasix] 20 mg PO BID@0900,1600 #60 tab 03/27/24 Nitroglycerin Sl Tabs [Nitrostat] 0.4 mg SUBLINGUAL Q5M PRN #10 tab 03/27/24 Spironolactone [Aldactone] 25 mg PO DAILY #30 tab 03/27/24 Nitrofurantoin Monohyd/M-Cryst 100 mg PO Q12HR #14 cap 07/30/24 [Macrobid] Allergies Allergy/AdvReac Type Severity Reaction Status Date / Time No Known Allergies Allergy Verified 07/30/24 08:56 Review of Systems ROS Statement: Those systems with pertinent positive or pertinent negative responses have been documented in the HPI. ROS Other: All systems not noted in ROS Statement are negative. Past Medical History Past Medical History: Coronary Artery Disease (CAD), Diabetes Mellitus, Myocardial Infarction (CA) Last Myocardial Infarction Date:: 01/25/2023 History of Any Multi-Drug Resistant Organisms: Unobtainable Past Surgical History: Cholecystectomy, Heart Catheterization With Stent Past Anesthesia/Blood Transfusion Reactions: Unable to Obtain Date of Last Stent Placement:: 01/25/2023 Past Psychological History: No Psychological Hx Reported, Unable to Obtain Smoking Status: Unknown if ever smoked Past Alcohol Use History: Unable to Obtain Past Drug Use History: Unable to Obtain General Exam Limitations: no limitations General appearance: alert, in no apparent distress Head exam: Present: atraumatic, normocephalic, normal inspection Eye exam: Present: normal appearance, PERRL, EOMI. Absent: scleral icterus, conjunctival injection, periorbital swelling ENT exam: Present: normal exam, mucous membranes moist Neck exam: Present: normal inspection. Absent: tenderness, meningismus, lymphadenopathy Respiratory exam: Present: normal lung sounds bilaterally. Absent: respiratory distress, wheezes, rales, rhonchi, stridor Cardiovascular Exam: Present: regular rate, normal rhythm, normal heart sounds. Absent: systolic murmur, diastolic murmur, rubs, gallop, clicks GI/Abdominal exam: Present: soft, normal bowel sounds. Absent: distended, tenderness, guarding, rebound, rigid Back exam: Absent: CVA tenderness (R), CVA tenderness (L) Course Vital Signs 07/30/24 08:49 Temperature 97.8 F Pulse Rate 95 Respiratory 14 Rate Blood Pressure 125/69 O2 Sat by Pulse 96 Oximetry EKG Findings - EKG Comments: EKG Findings:: EKG performed at 9: 29 sinus rhythm with a rate of 92 PA 175 QRS 86 QT/QTc 355/405 - EKG Results: EKG: interpreted by ERMD Medical Decision Making - Medical Decision Making Was pt. sent in by a medical professional or institution (, PA, SOUVENIR ASSEMBLER, urgent care, hospital, or usp...) When possible be specific @ -No Did you speak to anyone other than the patient for history (EMS, parent, family, police, friend...)? What history was obtained from this source @ -No Did you review nursing and triage notes (agree or disagree)? Why? @ -I reviewed and agree with nursing and triage notes Were old charts reviewed (outside hosp., previous admission, EMS record, old EKG, old radiological studies, urgent care reports/EKG's, usp records)? Report findings @ -No old charts were reviewed Differential Diagnosis (chest pain, altered mental status, abdominal pain women, abdominal pain men, vaginal bleeding, weakness, fever, dyspnea, syncope, headache, dizziness, GI bleed, back pain, seizure, CVA, palpatations, mental health, musculoskeletal)? @ -Differential Palpitations Ventricular arrhythmias, atrial arrhythmias, myocardial infarction, anemia, thyrotoxicosis, electrolyte imbalance, hypokalemia, pulmonary embolism, pulmonary disease, drugs, alcohol, anxiety, stress.... This is not meant to be an all-inclusive list. EKG interpreted by me (3pts min.). @ -As above X-rays interpreted by me (1pt min.). @ -Chest x-ray shows no acute cardiopulmonary process. CT interpreted by me (1pt min.). @ -None done U/S interpreted by me (1pt. min.). @ -None done What testing was considered but not performed or refused? (CT, X-rays, U/S, labs)? Why? @ -None What meds were considered but not given or refused? Why? @ -None Did you discuss the management of the patient with other professionals (prof arzate i.eTyrell Hoffman, PA, SOUVENIR ASSEMBLER, lab, RT, psych nurse, psychiatric social worker supervisor, distribution agent, teacher, business practices officer, leather case finisher)? Give summary @ -No Was smoking cessation discussed for >3mins.? @ -No Was critical care preformed (if so, how long)? @ -No Were there social determinants of health that impacted care today? How? (Homelessness, low income, unemployed, alcoholism, drug addiction, transportation, low edu. Level, literacy, decrease access to med. care, m[facility], rehab)? @ -No Was there de-escalation of care discussed even if they declined (Discuss DNR or withdrawal of care, Hospice)? DNR status @ -No What co-morbidities impacted this encounter? (DM, HTN, Smoking, COPD, CAD, Cancer, CVA, ARF, Chemo, Hep., AIDS, mental health diagnosis, sleep apnea, morbid obesity)? @ -None Was patient admitted / discharged? Hospital course, mention meds given and route, prescriptions, significant lab abnormalities, going to OR and other pertinent info. @ -Discharge patient is EKG, labs or studies and to at baseline, unremarkable. Patient does not have any current symptoms patient given Rocephin discharged on Macrobid. Patient feels comfortable discharge she was offered admission patient declined. Undiagnosed new problem with uncertain prognosis? @ -No Drug Therapy requiring intensive monitoring for toxicity (Heparin, Nitro, Insulin, Cardizem)? @ -No Were any procedures done? @ -No Diagnosis/symptom? @ -UTI, palpitations Acute, or Chronic, or Acute on Chronic? @ -Acute Uncomplicated (without systemic symptoms) or Complicated (systemic symptoms)? @ -Complicated Side effects of treatment? @ -No Exacerbation, Progression, or Severe Exacerbation? @ -No Poses a threat to life or bodily function? How? (Chest pain, USA, CA, pneumonia, PE, COPD, DKA, ARF, appy, cholecystitis, CVA, Diverticulitis, Homicidal, Suicidal, threat to staff... and all critical care pts) @ -No - Lab Data Result diagrams: 07/30/24 09:35 07/30/24 09:35 Lab Results 07/30/24 07/30/24 07/30/24 Range/Units 09:35 09:35 09:35 WBC 8.2 (3.8-10.6) k/uL RBC 4.26 (3.80-5.40) m/uL Hgb 9.7 L (11.4-16.0) gm/dL Hct 31.8 L (34.0-46.0) % MCV 74.7 L (80.0-100.0) fL MCH 22.9 L (25.0-35.0) pg MCHC 30.6 L (31.0-37.0) g/dL RDW 16.8 H (11.5-15.5) % Plt Count 249 (150-450) k/uL MPV 6.6 Neutrophils % 86 % Lymphocytes % 10 % Monocytes % 3 % Eosinophils % 0 % Basophils % 0 % Neutrophils # 7.0 (1.3-7.7) k/uL Lymphocytes # 0.8 L (1.0-4.8) k/uL Monocytes # 0.3 (0-1.0) k/uL Eosinophils # 0.0 (0-0.7) k/uL Basophils # 0.0 (0-0.2) k/uL Hypochromasia Marked Anisocytosis Slight Microcytosis Slight PT 12.3 (10.0-12.5) sec INR 1.1 (<1.2) APTT 26.4 (22.0-30.0) sec Sodium 128 L (137-145) mmol/L Potassium 4.4 (3.5-5.1) mmol/L Chloride 96 L (98-107) mmol/L Carbon Dioxide 25 (22-30) mmol/L Anion Gap 7 mmol/L BUN 9 (7-17) mg/dL Creatinine 0.68 (0.52-1.04) mg/dL Est GFR (CKD-EPI)AfAm >90 (>60 ml/min/1.73 sqM) Est GFR (CKD-EPI)NonAf 81 (>60 ml/min/1.73 sqM) Glucose 162 H (74-99) mg/dL Calcium 9.1 (8.4-10.2) mg/dL Magnesium 1.8 (1.6-2.3) mg/dL Total Bilirubin 0.9 (0.2-1.3) mg/dL AST 25 (14-36) U/L ALT 13 (4-34) U/L Alkaline Phosphatase 69 (38-126) U/L Troponin I (0.000-0.034) ng/mL Total Protein 6.3 (6.3-8.2) g/dL Albumin 3.5 (3.5-5.0) g/dL Urine Color Urine Appearance (Clear) Urine pH (5.0-8.0) Ur Specific [place] (1.001-1.035) Urine Protein (Negative) Urine Glucose (UA) (Negative) Urine Ketones (Negative) Urine Blood (Negative) Urine Nitrite (Negative) Urine Bilirubin (Negative) Urine Urobilinogen (<2.0) mg/dL Ur Leukocyte Esterase (Negative) Urine RBC (0-5) /hpf Urine WBC (0-5) /hpf Urine WBC Clumps (None) /hpf Ur Squamous Epith Cells (0-4) /hpf Urine Bacteria (None) /hpf 07/30/24 07/30/24 Range/Units 09:35 09:42 WBC (3.8-10.6) k/uL RBC (3.80-5.40) m/uL Hgb (11.4-16.0) gm/dL Hct (34.0-46.0) % MCV (80.0-100.0) fL MCH (25.0-35.0) pg MCHC (31.0-37.0) g/dL RDW (11.5-15.5) % Plt Count (150-450) k/uL MPV Neutrophils % % Lymphocytes % % Monocytes % % Eosinophils % % Basophils % % Neutrophils # (1.3-7.7) k/uL Lymphocytes # (1.0-4.8) k/uL Monocytes # (0-1.0) k/uL Eosinophils # (0-0.7) k/uL Basophils # (0-0.2) k/uL Hypochromasia Anisocytosis Microcytosis PT (10.0-12.5) sec INR (<1.2) APTT (22.0-30.0) sec Sodium (137-145) mmol/L Potassium (3.5-5.1) mmol/L Chloride (98-107) mmol/L Carbon Dioxide (22-30) mmol/L Anion Gap mmol/L BUN (7-17) mg/dL Creatinine (0.52-1.04) mg/dL Est GFR (CKD-EPI)AfAm (>60 ml/min/1.73 sqM) Est GFR (CKD-EPI)NonAf (>60 ml/min/1.73 sqM) Glucose (74-99) mg/dL Calcium (8.4-10.2) mg/dL Magnesium (1.6-2.3) mg/dL Total Bilirubin (0.2-1.3) mg/dL AST (14-36) U/L ALT (4-34) U/L Alkaline Phosphatase (38-126) U/L Troponin I 0.014 (0.000-0.034) ng/mL Total Protein (6.3-8.2) g/dL Albumin (3.5-5.0) g/dL Urine Color Light yellow Urine Appearance Turbid H (Clear) Urine pH 7.0 (5.0-8.0) Ur Specific [place] 1.009 (1.001-1.035) Urine Protein Negative (Negative) Urine Glucose (UA) Negative (Negative) Urine Ketones Negative (Negative) Urine Blood Small H (Negative) Urine Nitrite Positive H (Negative) Urine Bilirubin Negative (Negative) Urine Urobilinogen <2.0 (<2.0) mg/dL Ur Leukocyte Esterase Large H (Negative) Urine RBC 1 (0-5) /hpf Urine WBC >182 H (0-5) /hpf Urine WBC Clumps Rare H (None) /hpf Ur Squamous Epith Cells 1 (0-4) /hpf Urine Bacteria Few H (None) /hpf Disposition Clinical Impression: UTI (urinary tract infection), Palpitations Disposition: HOME SELF-CARE Condition: Stable Instructions (If sedation given, give patient instructions): Urinary Tract Infection in Women (ED) Additional Instructions: Please return to the Emergency Department if symptoms worsen or any other concerns. Prescriptions: Nitrofurantoin Monohyd/M-Cryst [Macrobid] 100 mg PO Q12HR #14 cap Is patient prescribed a controlled substance at d/c from ED?: No Referrals: Linden Foster DO [Primary Care Provider] - 1-2 days Time of Disposition: 10:49
[2024-07-30] MEDS: cefTRIAXone IN SWFI 1,000 MG/10 ML SYRINGE IVP STA (10:57)
[2024-07-30 11:16] VITALS: BP 125/76; PULSE 97; RESP 16
== END 2024-07-30 11:09 | disposition home or self-care (01) ==
LOC: EC 08:47
DX: N39.0 Urinary tract infection, site not specified (principal); R00.2 Palpitations
CPT/HCPCS: 36415; 93005; 80053; 83735; 84484; 85025; 85610; 85730; 81001; 87086; 71046; 99285; 96374; 96361; J0696

== ENCOUNTER 2024-08-25 08:42 | Emergency (ER) | payer MEDICARE, OTHER ==
[2024-08-25 08:50] VITALS: RESP 18; TEMP 97.8
[2024-08-25 09:43] VITALS: BP 122/88; PULSE 60
--- NOTE | 2024-08-25 10:15 | ED ---
SOB HPI - General Chief Complaint: Shortness of Breath Stated Complaint: SOB Time Seen by Provider: 08/25/24 08:50 Source: patient Mode of arrival: EMS - Related Data Home Medications Medication Instructions Recorded Confirmed RX: metFORMIN HCL [Glucophage] 1,000 mg PO BID 01/25/23 03/25/24 RX: Ascorbic Acid [Vitamin C] 1,000 mg PO DAILY 03/25/24 03/25/24 RX: Cholecalciferol [Vitamin D3 25 mcg PO DAILY 03/25/24 03/25/24 (25 Mcg = 1000 Iu)] RX: Metoprolol Succinate (ER) 100 mg PO DAILY 03/25/24 03/25/24 [Toprol XL] RX: Rosuvastatin Calcium [Crestor] 40 mg PO DAILY 03/25/24 03/25/24 Previous Rx's Medication Instructions Recorded RX: Apixaban [Eliquis] 2.5 mg PO BID 30 Days #60 tab 01/31/23 RX: Aspirin 81 mg PO DAILY #30 tab 03/27/24 RX: Dapagliflozin Propanediol 10 mg PO DAILY #30 tab 03/27/24 [Farxiga] RX: Furosemide [Lasix] 20 mg PO BID@0900,1600 #60 tab 03/27/24 RX: Nitroglycerin Sl Tabs 0.4 mg SUBLINGUAL Q5M PRN #10 tab 03/27/24 [Nitrostat] RX: Spironolactone [Aldactone] 25 mg PO DAILY #30 tab 03/27/24 Nitrofurantoin Monohyd/M-Cryst 100 mg PO Q12HR #14 cap 07/30/24 [Macrobid] Allergies Allergy/AdvReac Type Severity Reaction Status Date / Time No Known Allergies Allergy Verified 08/25/24 08:50 Review of Systems ROS Statement: Those systems with pertinent positive or pertinent negative responses have been documented in the HPI. ROS Other: All systems not noted in ROS Statement are negative. Past Medical History Past Medical History: Coronary Artery Disease (CAD), Diabetes Mellitus, Myocardial Infarction (AL) Additional Past Medical History / Comment(s): AL january 2024 Last Myocardial Infarction Date:: 01/25/2023 History of Any Multi-Drug Resistant Organisms: Unobtainable Past Surgical History: Cholecystectomy, Heart Catheterization With Stent Past Anesthesia/Blood Transfusion Reactions: Unable to Obtain Date of Last Stent Placement:: 01/25/2023 Past Psychological History: No Psychological Hx Reported Smoking Status: Never smoker Past Alcohol Use History: Unable to Obtain Past Drug Use History: Unable to Obtain Course Vital Signs 08/25/24 08/25/24 08/25/24 08:44 09:04 09:42 Temperature 97.8 F Pulse Rate 62 65 60 Respiratory 18 18 18 Rate Blood Pressure 141/105 123/66 122/88 O2 Sat by Pulse 97 100 97 Oximetry Medical Decision Making - Medical Decision Making Was pt. sent in by a medical professional or institution (, [facility], TRAINING ENGINEER, urgent care, hospital, or correction...) When possible be specific @ -[No] Did you speak to anyone other than the patient for history (EMS, parent, family, police, friend...)? What history was obtained from this source @ -[No] Did you review nursing and triage notes (agree or disagree)? Why? @ -[I reviewed and agree with nursing and triage notes] Were old charts reviewed (outside hosp., previous admission, EMS record, old EKG, old radiological studies, urgent care reports/EKG's, correction records)? Report findings @ -[No old charts were reviewed] Differential Diagnosis (chest pain, altered mental status, abdominal pain women, abdominal pain men, vaginal bleeding, weakness, fever, dyspnea, syncope, headache, dizziness, GI bleed, back pain, seizure, CVA, palpatations, mental health, musculoskeletal)? @ -[not applicable] EKG interpreted by me (3pts min.). @ -Yes and demonstrates A-fib with a rate of 76. QRS 96. QTc of 462. No acute ST segment elevations or depressions X-rays interpreted by me (1pt min.). @ -[None done] CT interpreted by me (1pt min.). @ -[None done] U/S interpreted by me (1pt. min.). @ -[None done] What testing was considered but not performed or refused? (CT, X-rays, U/S, labs)? Why? @ -[None] What meds were considered but not given or refused? Why? @ -[None] Did you discuss the management of the patient with other professionals (professionals i.e. , [facility], TRAINING ENGINEER, lab, RT, psych nurse, school social worker, integration solution architect, teacher, family preservation officer, case sealer)? Give summary @ -[No] Was smoking cessation discussed for >3mins.? @ -[No] Was critical care preformed (if so, how long)? @ -[No] Were there social determinants of health that impacted care today? How? (Homelessness, low income, unemployed, alcoholism, drug addiction, transportation, low edu. Level, literacy, decrease access to med. care, fci, rehab)? @ -[No] Was there de-escalation of care discussed even if they declined (Discuss DNR or withdrawal of care, Hospice)? DNR status @ -[No] What co-morbidities impacted this encounter? (DM, HTN, Smoking, COPD, CAD, Cancer, CVA, ARF, Chemo, Hep., AIDS, mental health diagnosis, sleep apnea, morbid obesity)? @ -[None] Was patient admitted / discharged? Hospital course, mention meds given and route, prescriptions, significant lab abnormalities, going to OR and other pertinent info. @ -[hospital course] Undiagnosed new problem with uncertain prognosis? @ -[No] Drug Therapy requiring intensive monitoring for toxicity (Heparin, Nitro, Insulin, Cardizem)? @ -[No] Were any procedures done? @ -[No] Diagnosis/symptom? @ -[default] Acute, or Chronic, or Acute on Chronic? @ -[default] Uncomplicated (without systemic symptoms) or Complicated (systemic symptoms)? @ -[default] Side effects of treatment? @ -[No] Exacerbation, Progression, or Severe Exacerbation? @ -[No] Poses a threat to life or bodily function? How? (Chest pain, [place], [place], pneumonia, PE, COPD, DKA, ARF, appy, cholecystitis, CVA, Diverticulitis, Homicidal, Suicidal, threat to staff... and all critical care pts) @ -[No] Disposition Clinical Impression: Chest pain, Shortness of breath Disposition: LEFT AGAINST MEDICAL ADVICE Condition: Undetermined Additional Instructions: I recommended testing into the etiology of your symptoms. Return to the ED should you be agreeable to a work-up Is patient prescribed a controlled substance at d/c from ED?: No Referrals: Linden Foster DO [Primary Care Provider] - 1-2 days Time of Disposition: 10:15
== END 2024-08-25 10:21 | disposition left against medical advice (07) ==
LOC: EC 08:42
DX: R07.9 Chest pain, unspecified (principal); R06.02 Shortness of breath; Z53.29 Procedure and treatment not carried out because of patient's decision for other reasons
CPT/HCPCS: 93005; 99285